=== PATIENT | male | born 1950 | race Caucasian/White ===

== ENCOUNTER 2018-05-24 12:54 | Emergency (ER) | payer OTHER, MEDICAID ==
[2018-05-24] MEDS: LIDOCAINE 2% (MDV) 20 ML INJ INJ (14:32)
== END 2018-05-24 16:15 | disposition home or self-care (01) ==
LOC: FTE 12:54
DX: S01.81XA Laceration without foreign body of other part of head, initial encounter (principal); S09.90XA Unspecified injury of head, initial encounter; I10 Essential (primary) hypertension; E11.9 Type 2 diabetes mellitus without complications; W18.09XA Striking against other object with subsequent fall, initial encounter; Y92.89 Other specified places as the place of occurrence of the external cause; Z87.891 Personal history of nicotine dependence
CPT/HCPCS: 12014; 70450; 72125; 99284-25